=== PATIENT | female | born 1955 | race Hispanic/Latino ===

== ENCOUNTER 2016-11-27 11:09 | Emergency (ER) | payer MEDICARE, MEDICAID ==
[2016-11-27 11:10] VITALS: BMI 28.1
[2016-11-27 11:15] VITALS: BP 141/64; PULSE 69; RESP 20; TEMP 98.3; O2SAT 100
--- NOTE | 2016-11-27 12:15 | ED PDOC ---
HPI: Dental Pain/Injury Time Seen by Provider: 11/27/16 11:59 Chief Complaint (Nursing): Dental Pain Chief Complaint (Provider): Facial pain History Per: Patient Additional Complaint(s): c/o pain and swelling lt side of face and lt upper molar x 3 days. No fever or chills. Past Medical History Reviewed: Nursing Documentation, Vital Signs Vital Signs: Last Vital Signs Temp 98.3 F 11/27/16 11:15 Pulse 69 11/27/16 11:15 Resp 20 11/27/16 11:15 BP 141/64 11/27/16 11:15 Pulse Ox 100 11/27/16 11:15 - Medical History PMH: Anemia, Anxiety, Arthritis (osteoarthritis), Asthma, Back Problems ( chronic pain), COPD, CVA, Depression, Hypercholesterolemia (per old record but pt dnies), Hypothyroidism, Osteoporosis, Chronic Kidney Disease, TIA Denies: HIV, HTN - Surgical History Surgical History: (x2) Denies: Pacemaker - Family History Family History: States: Diabetes - Living Arrangements Living Arrangements: With Family - Social History Current smoker - smoking cessation education provided: No Alcohol: None Drugs: Denies - Immunization History Hx Tetanus Toxoid Vaccination: No Hx Influenza Vaccination: Yes Hx Pneumococcal Vaccination: No - Home Medications Home Medications: Ambulatory Orders Medication Instructions Recorded Albuterol Sulfate [Proair Hfa] 2 puff IH BID PRN 06/05/16 Cholecalciferol (Vitamin D3) 5,000 unit PO DAILY 06/05/16 [Vitamin D3] Fluticasone/Salmeterol 250/50 1 puff IH Q12H 06/05/16 [Advair Diskus 250/50] Hydroxychloroquine Sulfate 200 mg PO BID 06/05/16 [Plaquenil] Lorazepam [Ativan] 0.5 mg PO DAILY PRN 06/05/16 Meloxicam [Mobic] 15 mg PO DAILY 06/05/16 Omeprazole 40 mg PO DAILY 06/05/16 Cholecalciferol [Vitamin D 1000 IU] 5,000 iu PO DAILY tab 06/08/16 Fluticasone/Salmeterol 250/50 1 puff IH Q12H puff 06/08/16 [Advair Diskus 250/50] Clindamycin [Cleocin] 300 mg PO BID #14 cap 11/27/16 Ibuprofen [Motrin] 600 mg PO Q6 #20 tab 11/27/16 oxyCODONE/Acetaminophen [Percocet 1 ea PO Q6 PRN #5 tab 11/27/16 5/325 mg Tab] - Allergies Allergies/Adverse Reactions: Allergies Allergy/AdvReac Type Severity Reaction Status Date / Time No Known Allergies Allergy Verified 11/27/16 11:41 Review of Systems ROS Statement: Except As Marked, All Systems Reviewed And Found Negative ENT: Positive for: Other (facial swelling) Physical Exam - Reviewed Nursing Documentation Reviewed: Yes Vital Signs Reviewed: Yes - Physical Exam Appears: Positive for: Well, Non-toxic, No Acute Distress Head Exam: Positive for: ATRAUMATIC, NORMAL INSPECTION, NORMOCEPHALIC Skin: Positive for: Normal Color, Warm, DRY Eye Exam: Positive for: EOMI, Normal appearance, PERRL ENT: Positive for: Other (Left maxillary sinus tenderness, erythema and edema) Neck: Positive for: Normal, Painless ROM Cardiovascular/Chest: Positive for: Regular Rate, Rhythm Respiratory: Positive for: CNT, Normal Breath Sounds Gastrointestinal/Abdominal: Positive for: Normal Exam, Bowel Sounds, Soft Back: Positive for: Normal Inspection Extremity: Positive for: Normal ROM Neurologic/Psych: Positive for: Alert, Oriented - Laboratory Results Result Diagrams: 11/27/16 12:30 11/27/16 12:30 - ECG O2 Sat by Pulse Oximetry: 100 Medical Decision Making Medical Decision Making: IV access established and treatment initiated with IV Toradol and Clindamycin CBC and COMP resulted WNL, WBC 6.5 IMPRESSION: 1. Findings are concerning for a 2.5 x 0.6 cm rim enhancing fluid collection lateral to the left maxilla and abnormal enhancing soft tissue lateral to the left maxilla and mandible with reactive submandibular lymph node. Also noted is left facial cellulitis. 2. Periapical absc ess in the left 2nd maxillary molar. Pt educated on results and demonstrated full understanding. Pt given [facility] for follow up. Advised to continue with Clindamycin, Motrin RX for Pain. Return to ED if at anytime condition worsens. Disposition - Clinical Impression Clinical Impression: Dental abscess, Facial cellulitis - Patient ED Disposition Is Patient to be Admitted: No - Disposition Disposition: Routine/Home Disposition Time: 16:31 Condition: STABLE - POA Present On Arrival: None
[2016-11-27 12:59] LABS: BASO % 0.4 % (0.0-2.0); EOS # 0.1 K/uL (0.0-0.7); EOS % 1.1 % (0.0-4.0); HEMOGLOBIN 13.1 g/dL (12.0-16.0); LYMPH % 15.8 % (20.0-40.0); MEAN CELL VOLUME 86.8 fl (81.0-99.0); MEAN CORPUSCULAR HEMOGLOBIN 29.4 pg (27.0-31.0); MEAN CORPUSCULAR HGB CONC 33.9 g/dL (33.0-37.0); MEAN PLATELET VOLUME 8.7 fl (7.2-11.7); MONO # 0.5 K/uL (0.0-0.8); MONO % 8.4 % (0.0-10.0); NEUT # 4.8 K/uL (1.8-7.0); NEUT % 74.3 % (50.0-75.0); NRBC % 0.1 % (0.0-0.0); RBC 4.44 Mil/uL (3.80-5.20); WHITE BLOOD COUNT 6.5 K/uL (4.8-10.8)
[2016-11-27 13:12] LABS: ALB/GLOB RATIO 1.2 (1.0-2.1); ALBUMIN 4.1 g/dL (3.5-5.0); ALT/SGPT 29 U/L (9-52); AST/SGOT 25 U/L (14-36); BLOOD UREA NITROGEN 12 mg/dl (7-17); CALCIUM 9.4 mg/dL (8.4-10.2); GFR AFRICAN-AMERICAN > 60; GFR NON-AFRICAN AMERICAN > 60
[2016-11-27] MEDS ORDERED: Iohexol 300 100 ML IJ ONE (14:47)
[2016-11-27] MEDS ORDERED: Sodium Chloride 0.9% 50 ML IV ONE (14:47)
--- NOTE | 2016-11-27 15:32 | CT ---
PROCEDURE: CT MAXILLOFACIAL BONES WITH CONTRAST HISTORY: r/o abscess, left cheek pain and swelling COMPARISON: None. TECHNIQUE: Contiguous axial CT images of the maxillofacial bones were obtained following administration of IV contrast. Coronal and sagittal reformats were generated. Intravenous contrast Dose: 90 mL Omnipaque 300 Radiation dose: Total exam DLP = 756.81 mGy-cm. This CT exam was performed using one or more of the following dose reduction techniques: Automated exposure control, adjustment of the mA and/or kV according to patient size, and/or use of iterative reconstruction technique. FINDINGS: NASAL BONES: Unremarkable. 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 There are no intra-ocular extra ocular abnormalities the PARANASAL SINUSES/ MASTOIDS: Clear. MAXILLA: There is an approximately 2.5 x 0.6 cm abnormal soft-tissue along the left posterior maxilla and left lateral mandible. There is also a small focus of air within the low-attenuation collection. There is a periapical abscess in the left 2nd maxillary molar. There is a prominent left submandibular lymph node. There is also stranding of fat in the left facial subcutaneous fat. MANDIBLE/ TEMPOROMANDIBULAR JOINTS: Unremarkable. SKULL BASE: Unremarkable. TEMPORAL BONES: Middle ears and mastoid grossly unremarkable. OTHER FINDINGS: There are large calcified and noncalcified plaques in the left carotid bulb. IMPRESSION: 1. Findings are concerning for a 2.5 x 0.6 cm rim enhancing fluid collection lateral to the left maxilla and abnormal enhancing soft tissue lateral to the left maxilla and mandible with reactive submandibular lymph node. Also noted is left facial cellulitis. 2. Periapical abscess in the left 2nd maxillary molar.
== END 2016-11-27 17:00 | disposition home or self-care (01) ==
LOC: H.ER 11:09
DX: K12.2 Cellulitis and abscess of mouth (principal)
CPT/HCPCS: 70488; 80053; 85025; 87040; 96374; 99281; J1885; Q9967

== ENCOUNTER 2017-01-10 13:37 | Emergency (ER) | payer MEDICARE, OTHER ==
[2017-01-10 13:38] VITALS: BMI 28.1
[2017-01-10 13:54] VITALS: TEMP 98.6
[2017-01-10 14:27] LABS: BASO % 0.6 % (0.0-2.0); EOS % 0.6 % (0.0-4.0); HEMOGLOBIN 13.6 g/dL (12.0-16.0); LYMPH # 0.9 K/uL (1.0-4.3); LYMPH % 11.6 % (20.0-40.0); MEAN CELL VOLUME 87.5 fl (81.0-99.0); MEAN CORPUSCULAR HEMOGLOBIN 29.5 pg (27.0-31.0); MEAN CORPUSCULAR HGB CONC 33.7 g/dL (33.0-37.0); MEAN PLATELET VOLUME 8.3 fl (7.2-11.7); MONO # 0.4 K/uL (0.0-0.8); MONO % 5.7 % (0.0-10.0); NEUT # 6.2 K/uL (1.8-7.0); NEUT % 81.5 % (50.0-75.0); RBC 4.61 Mil/uL (3.80-5.20); RED CELL DISTRIBUTION WIDTH 12.9 % (11.5-14.5); WHITE BLOOD COUNT 7.5 K/uL (4.8-10.8)
[2017-01-10] MEDS ORDERED: Oxycodone/Acetaminophen 5/325 mg Tab PO STA (14:30)
[2017-01-10 14:37] LABS: BLOOD UREA NITROGEN 19 mg/dl (7-17); CALCIUM 9.4 mg/dL (8.4-10.2); GFR AFRICAN-AMERICAN > 60; GFR NON-AFRICAN AMERICAN > 60
[2017-01-10] MEDS ORDERED: Oxycodone/Acetaminophen 5/325 mg Tab ONE (14:39)
--- NOTE | 2017-01-10 14:39 | ED PDOC ---
HPI: General Adult Time Seen by Provider: 01/10/17 13:56 Chief Complaint (Nursing): Weakness/Neurological Deficit Chief Complaint (Provider): Numbness of the mouth History Per: Patient History/Exam Limitations: no limitations Onset/Duration Of Symptoms: Hrs Current Symptoms Are (Timing): Still Present Additional Complaint(s): 61 y/o female presents to the emergency department with a complaint of numbness of her mouth and lower face after dental procedure a couple of hours ago today, 01/10/2017. Patient underwent multiple tooth extractions with Lidocaine Inj. Describes it as a heavy feeling with pain to her teeth. Reports she is worried because she has a history of strokes and hypertension, not taking medications for, and not feeling well after the procedure. Denies bleeding, chest pain, dizziness, or further neurological complaints or deficits. Of note, patient had dental procedure earlier today and waiting as outpatient for EKG as a medical clearance for next scheduled appointment. While waiting patient started to feel heaviness of the face and pain in the teeth because teeth were removed. Past Medical History Reviewed: Historical Data, Nursing Documentation, Vital Signs Vital Signs: Last Vital Signs Temp 98.6 F 01/10/17 13:46 Pulse 86 01/10/17 13:46 Resp 16 01/10/17 13:46 BP 146/75 01/10/17 13:46 Pulse Ox 98 01/10/17 14:49 - Medical History PMH: Anemia, Anxiety, Arthritis (osteoarthritis), Asthma, Back Problems ( chronic pain), COPD, CVA, Depression, Hypercholesterolemia (per old record but pt dnies), Hypothyroidism, Osteoporosis, Chronic Kidney Disease, TIA Denies: HIV, HTN - Surgical History Surgical History: (x2) Denies: Pacemaker - Family History Family History: States: Diabetes - Social History Current smoker - smoking cessation education provided: No Alcohol: None Drugs: Denies - Immunization History Hx Tetanus Toxoid Vaccination: No Hx Influenza Vaccination: Yes Hx Pneumococcal Vaccination: No - Home Medications Home Medications: Ambulatory Orders Medication Instructions Recorded Albuterol Sulfate [Proair Hfa] 2 puff IH BID PRN 06/05/16 Cholecalciferol (Vitamin D3) 5,000 unit PO DAILY 06/05/16 [Vitamin D3] Fluticasone/Salmeterol 250/50 1 puff IH Q12H 06/05/16 [Advair Diskus 250/50] Hydroxychloroquine Sulfate 200 mg PO BID 06/05/16 [Plaquenil] Lorazepam [Ativan] 0.5 mg PO DAILY PRN 06/05/16 Meloxicam [Mobic] 15 mg PO DAILY 06/05/16 Omeprazole 40 mg PO DAILY 06/05/16 Cholecalciferol [Vitamin D 1000 IU] 5,000 iu PO DAILY tab 06/08/16 Fluticasone/Salmeterol 250/50 1 puff IH Q12H puff 06/08/16 [Advair Diskus 250/50] Clindamycin [Cleocin] 300 mg PO BID #14 cap 11/27/16 Ibuprofen [Motrin] 600 mg PO Q6 #20 tab 11/27/16 oxyCODONE/Acetaminophen [Percocet 1 ea PO Q6 PRN #5 tab 11/27/16 5/325 mg Tab] - Allergies Allergies/Adverse Reactions: Allergies Allergy/AdvReac Type Severity Reaction Status Date / Time No Known Allergies Allergy Verified 11/27/16 11:41 Review of Systems ROS Statement: Except As Marked, All Systems Reviewed And Found Negative ENT: Positive for: Mouth Pain (Teeth pain). Negative for: Other (No bleeding noted to the teeth or mouth region) Cardiovascular: Negative for: Chest Pain Neurological: Positive for: Numbness (Of the mouth described as heavy. ). Negative for: Dizziness Physical Exam - Reviewed Nursing Documentation Reviewed: Yes Vital Signs Reviewed: Yes - Physical Exam Appears: Positive for: Well, Non-toxic, No Acute Distress Head Exam: Positive for: ATRAUMATIC, NORMAL INSPECTION, NORMOCEPHALIC Skin: Positive for: Normal Color, Warm, Dry Eye Exam: Positive for: Normal appearance, EOMI ENT: Positive for: Normal ENT Inspection, Other (No teeth noted in the mouth. All remaning teeth were extracted. ). Negative for: Pharyngeal Erythema Neck: Positive for: Normal, Supple Cardiovascular/Chest: Positive for: Regular Rate, Rhythm. Negative for: Murmur Respiratory: Positive for: Normal Breath Sounds. Negative for: Accessory Muscle Use, Respiratory Distress Gastrointestinal/Abdominal: Positive for: Normal Exam, Soft. Negative for: Tenderness Extremity: Positive for: Normal ROM. Negative for: Pedal Edema Neurologic/Psych: Positive for: Alert, Oriented - Laboratory Results Result Diagrams: 01/10/17 14:23 01/10/17 14:23 - ECG O2 Sat by Pulse Oximetry: 98 (RA) Pulse Ox Interpretation: Normal Medical Decision Making Medical Decision Making: Time: 14:01 Initial impression: Paresthesias of the mouth and lower face associated with anaesthetic used during dental procedure Initial plan: --EKG --BMP --Troponin I --Percocet 5/325 mg --Reevaluation Scribe Attestation: Documented by Katty Aguilar, acting as a scribe for Priscilla Middleton MD. Provider Scribe Attestation: All medical record entries made by the Scribe were at my direction and personally dictated by me. I have reviewed the chart and agree that the record accurately reflects my personal performance of the history, physical exam, medical decision making, and the department course for this patient. I have also personally directed, reviewed, and agree with the discharge instructions and disposition. Disposition - Clinical Impression Clinical Impression: Paresthesias - Patient ED Disposition Is Patient to be Admitted: No Doctor Will See Patient In The: Office Counseled Patient/Family Regarding: Studies Performed, Diagnosis - Disposition Referrals: Yemi Echevarria MD [Staff Provider] - Disposition: Routine/Home Disposition Time: 14:54 Condition: GOOD Additional Instructions: Follow up with your PCP in 2-3 days. Instructions: Paresthesia (ED)
[2017-01-10 15:11] VITALS: BP 132/78; PULSE 75; RESP 14; O2SAT 100
--- NOTE | 2017-01-11 12:07 | CARD ---
APPROVED REPORT EKG Measurement Heart [id number] <Conclusion> Normal sinus rhythm Inferior infarct, age undetermined Abnormal ECG
== END 2017-01-10 15:10 | disposition home or self-care (01) ==
LOC: H.ER 13:37
DX: R20.2 Paresthesia of skin (principal); E03.9 Hypothyroidism, unspecified; F41.9 Anxiety disorder, unspecified; I12.9 Hypertensive chronic kidney disease with stage 1 through stage 4 chronic kidney disease, or unspecified chronic kidney disease; Z86.73 Personal history of transient ischemic attack (TIA), and cerebral infarction without residual deficits

== ENCOUNTER 2017-01-13 21:33 | Emergency (ER) | payer MEDICARE, OTHER ==
[2017-01-13 21:33] VITALS: BMI 28.1
[2017-01-13 21:41] VITALS: BP 126/54; PULSE 75; RESP 18; TEMP 98.5; O2SAT 100
--- NOTE | 2017-01-13 22:02 | ED PDOC ---
Lower Extremity Pain/Injury Time Seen by Provider: 01/13/17 21:46 Chief Complaint (Nursing): Lower Extremity Problem/Injury Chief Complaint (Provider): foot pain History Per: Patient Additional Complaint(s): 61-year-old female presents with atraumatic pain to her right foot that started earlier today. Patient was lying down when she felt sharp pain to the bottom of right foot. She took 2 Tylenol which did not help so she came to ED. Patient has severe discomfort when trying to walk or bear weight. No associated fever or chills. She states pain does not radiate and is improved with rest. No associated numbness or tingling to the affected area. Past Medical History Reviewed: Historical Data, Nursing Documentation, Vital Signs Vital Signs: Last Vital Signs Temp 98.5 F 01/13/17 21:39 Pulse 75 01/13/17 21:39 Resp 18 01/13/17 21:39 BP 126/54 L 01/13/17 21:39 Pulse Ox 100 01/13/17 21:39 - Medical History PMH: Anemia, Anxiety, Arthritis (osteoarthritis), Asthma, Back Problems ( chronic pain), COPD, Depression, Hypothyroidism, Osteoporosis, TIA - Surgical History Surgical History: (x2) - Family History Family History: States: Diabetes - Living Arrangements Living Arrangements: With Family - Social History Current smoker - smoking cessation education provided: Yes ("sometimes") Alcohol: None Drugs: Denies - Home Medications Home Medications: Ambulatory Orders Medication Instructions Recorded Albuterol Sulfate [Proair Hfa] 2 puff IH BID PRN 06/05/16 Cholecalciferol (Vitamin D3) 5,000 unit PO DAILY 06/05/16 [Vitamin D3] Fluticasone/Salmeterol 250/50 1 puff IH Q12H 06/05/16 [Advair Diskus 250/50] Hydroxychloroquine Sulfate 200 mg PO BID 06/05/16 [Plaquenil] Lorazepam [Ativan] 0.5 mg PO DAILY PRN 06/05/16 Meloxicam [Mobic] 15 mg PO DAILY 06/05/16 Omeprazole 40 mg PO DAILY 06/05/16 Cholecalciferol [Vitamin D 1000 IU] 5,000 iu PO DAILY tab 06/08/16 Fluticasone/Salmeterol 250/50 1 puff IH Q12H puff 06/08/16 [Advair Diskus 250/50] Clindamycin [Cleocin] 300 mg PO BID #14 cap 11/27/16 Ibuprofen [Motrin] 600 mg PO Q6 #20 tab 11/27/16 oxyCODONE/Acetaminophen [Percocet 1 ea PO Q6 PRN #5 tab 11/27/16 5/325 mg Tab] Ibuprofen [Motrin Tab] 800 mg PO Q8 PRN #20 tab 01/13/17 - Allergies Allergies/Adverse Reactions: Allergies Allergy/AdvReac Type Severity Reaction Status Date / Time No Known Allergies Allergy Verified 11/27/16 11:41 Wells Criteria for PE - Wells Criteria for Pulmonary Embolism Clinical Signs and Symptoms of DVT: No P.E is #1 Diagnosis, or Equally Likely: No Heart Rate >100: No Immobilization at least 3 days;Surgery previous 4 weeks: No Previous, objectively diagnosed PE or DVT: No Hemoptysis: No Malignancy w/treatment within 6 months, or palliative: No Total Score: 0 Review of Systems ROS Statement: Except As Marked, All Systems Reviewed And Found Negative Constitutional: Negative for: Fever, Chills Cardiovascular: Negative for: Chest Pain Respiratory: Negative for: Shortness of Breath Musculoskeletal: Positive for: Foot Pain (right foot pain, no trauma) Physical Exam - Reviewed Nursing Documentation Reviewed: Yes Vital Signs Reviewed: Yes - Physical Exam Appears: Positive for: Well, Non-toxic, No Acute Distress Skin: Negative for: Rash Eye Exam: Positive for: Normal appearance, EOMI, PERRL Cardiovascular/Chest: Positive for: Regular Rate, Rhythm Respiratory: Positive for: Normal Breath Sounds Extremity: Positive for: Other (Mild tenderness diffusely to right foot with no swelling or ecchymosis, palpable DP pulse, no swelling or ecchymosis, normal distal sensation right lower extremity, nontender right ankle) Neurologic/Psych: Positive for: Alert, Oriented - ECG O2 Sat by Pulse Oximetry: 100 Pulse Ox Interpretation: Normal - Other Rad Right foot x-ray X-Ray: Interpreted by Me, Viewed By Me X-Ray Interpretation: no fx, no dis, degenerative changes, osteopenia Medical Decision Making Medical Decision Makin-year-old female with atraumatic pain to right foot. Plan: PO motrin X-ray right foot Patient reports improvement to pain after Motrin dose given. Crutches were declined. Patient does have cane at home. Ronnie wrap and ortho shoe applied to right foot. Patient was advised to ice and elevate affected area and prescription for Motrin was provided along with podiatry referral for follow up. Procedures - Splinting Location: right foot Pre-Made Type: ronnie wrap, ortho shoe Pre-Proc Neuro Vasc Exam: normal Post-Proc Neuro Vasc Exam: normal Disposition - Clinical Impression Clinical Impression: Foot pain, Arthralgia of foot - Patient ED Disposition Is Patient to be Admitted: No Counseled Patient/Family Regarding: Studies Performed, Diagnosis, Need For Followup, Rx Given - Disposition Referrals: Taz Ding DPM [Staff Provider] - Podiatry Clinic [Outside] Disposition: Routine/Home Disposition Time: 22:43 Condition: STABLE Additional Instructions: Ice, rest and elevate affected area. Take prescription meds for pain relief as needed as directed. Follow-up with air traffic supervisor or podiatry clinic for any persistent symptoms. Prescriptions: Ibuprofen [Motrin Tab] 800 mg PO Q8 PRN #20 tab PRN Reason: Pain, Moderate (4-7) Instructions: Arthralgia (ED), Foot Sprain (ED) Forms: [employer] ([employer])
--- NOTE | 2017-01-14 10:25 | RAD ---
PROCEDURE: Right Foot Radiographs. HISTORY: pain COMPARISON: None. FINDINGS: BONES: Normal. No fracture. JOINTS: Normal. SOFT TISSUES: Normal. OTHER FINDINGS: None. IMPRESSION: Normal right foot radiographs.
== END 2017-01-13 23:12 | disposition home or self-care (01) ==
LOC: H.ER 21:33
DX: M79.671 Pain in right foot (principal)

== ENCOUNTER 2017-07-12 11:08 | Emergency (ER) | payer MEDICARE, OTHER ==
[2017-07-12 11:25] VITALS: BP 124/70; PULSE 65; RESP 16; TEMP 97.4; O2SAT 100
--- NOTE | 2017-07-12 11:40 | ED PDOC ---
HPI: Skin/Bite Injury Time Seen by Provider: 07/12/17 11:22 Chief Complaint (Nursing): Abnormal Skin Integrity History Per: Patient Onset/Duration Of Symptoms: Days (1) Current Symptoms Are (Timing): Still Present Location Of Injury: Right: Arm, Left: Back, Anterior: Abdomen Quality Of Symptoms: Itching Severity: Moderate Additional Complaint(s): Itchy rash involving right bicep, infraumbilical area and left mid back since yesterday. Unknown allergen. Denies SOB, wheezing or tightness in throat Past Medical History Vital Signs: Last Vital Signs Temp 97.4 F L 07/12/17 11:22 Pulse 65 07/12/17 11:22 Resp 16 07/12/17 11:22 BP 124/70 07/12/17 11:22 Pulse Ox 100 07/12/17 11:22 - Medical History PMH: Anemia, Anxiety, Arthritis (osteoarthritis), Asthma, Back Problems ( chronic pain), COPD, CVA, Depression, Hypercholesterolemia (per old record but pt dnies), Hypothyroidism, Osteoporosis, Chronic Kidney Disease, TIA Denies: HIV, HTN Other PMH: Lupus - Surgical History Surgical History: (x2) Denies: Pacemaker - Family History Family History: States: Diabetes - Immunization History Hx Tetanus Toxoid Vaccination: No Hx Influenza Vaccination: Yes Hx Pneumococcal Vaccination: No - Home Medications Home Medications: Ambulatory Orders Medication Instructions Recorded Albuterol Sulfate [Proair Hfa] 2 puff IH BID PRN 06/05/16 Cholecalciferol (Vitamin D3) 5,000 unit PO DAILY 06/05/16 [Vitamin D3] Fluticasone/Salmeterol 250/50 1 puff IH Q12H 06/05/16 [Advair Diskus 250/50] Hydroxychloroquine Sulfate 200 mg PO BID 06/05/16 [Plaquenil] Lorazepam [Ativan] 0.5 mg PO DAILY PRN 06/05/16 Meloxicam [Mobic] 15 mg PO DAILY 06/05/16 Omeprazole 40 mg PO DAILY 06/05/16 Cholecalciferol [Vitamin D 1000 IU] 5,000 iu PO DAILY tab 06/08/16 Fluticasone/Salmeterol 250/50 1 puff IH Q12H puff 06/08/16 [Advair Diskus 250/50] Clindamycin [Cleocin] 300 mg PO BID #14 cap 11/27/16 Ibuprofen [Motrin] 600 mg PO Q6 #20 tab 11/27/16 oxyCODONE/Acetaminophen [Percocet 1 ea PO Q6 PRN #5 tab 11/27/16 5/325 mg Tab] Ibuprofen [Motrin Tab] 800 mg PO Q8 PRN #20 tab 01/13/17 Cetirizine HCl [Zyrtec] 10 mg PO DAILY #10 capsule 07/12/17 Prednisone 50 mg PO DAILY #5 tab 07/12/17 - Allergies Allergies/Adverse Reactions: Allergies Allergy/AdvReac Type Severity Reaction Status Date / Time No Known Allergies Allergy Verified 11/27/16 11:41 Review of Systems Constitutional: Negative for: Fever ENT: Negative for: Mouth Swelling, Throat Swelling Respiratory: Negative for: Shortness of Breath Skin: Positive for: Rash Physical Exam - Physical Exam Appears: Positive for: Non-toxic, No Acute Distress Skin: Positive for: Rash (Erythemetous rash flat confluent right inner bicep, below unbilicus and left mid back) ENT: Negative for: Tonsillar Swelling Cardiovascular/Chest: Positive for: Regular Rate, Rhythm Respiratory: Positive for: CNT, Normal Breath Sounds - ECG O2 Sat by Pulse Oximetry: 100 Disposition - Clinical Impression Clinical Impression: Allergic reaction - Patient ED Disposition Is Patient to be Admitted: No Counseled Patient/Family Regarding: Diagnosis, Need For Followup, Rx Given - Disposition Referrals: [facility] [Outside] Chad Long MD [Family Provider] - Disposition: Routine/Home Disposition Time: 11:41 Condition: FAIR Prescriptions: Cetirizine HCl [Zyrtec] 10 mg PO DAILY #10 capsule Prednisone 50 mg PO DAILY #5 tab Instructions: Skin Rash, Hives (DC)
== END 2017-07-12 11:50 | disposition home or self-care (01) ==
LOC: H.ER 11:08
DX: M81.0 Age-related osteoporosis without current pathological fracture (principal); J45.909 Unspecified asthma, uncomplicated; Z86.79 Personal history of other diseases of the circulatory system; Z86.59 Personal history of other mental and behavioral disorders

== ENCOUNTER 2017-12-13 15:16 | Emergency (ER) | payer MEDICARE, OTHER ==
[2017-12-13 15:26] VITALS: O2SAT 98
--- NOTE | 2017-12-13 16:16 | ED PDOC ---
Lower Extremity Pain/Injury Time Seen by Provider: 12/13/17 15:42 Chief Complaint (Nursing): Lower Extremity Problem/Injury Chief Complaint (Provider): Lower Extremity Problem/Injury History Per: Patient History/Exam Limitations: no limitations Onset/Duration Of Symptoms: Days (x1) Current Symptoms Are (Timing): Still Present Additional Complaint(s): Jessica Tristan is a 62 year old female with a past medical history of osteoporosis , COPD, GERD, arthritis, asthma, chronic back pain, and CVA who is presenting to the ED with complaints of constant knee pain, onset yesterday. Patient states that the pain is worsened when she walks or bends the knee but denies any trauma or injury. She reports taking Tylenol for the pain and denies any fever or other medical complaints. PMD: Dr. Long Past Medical History Reviewed: Historical Data, Nursing Documentation, Vital Signs Vital Signs: Last Vital Signs Temp 98.8 F 12/13/17 15:24 Pulse 62 12/13/17 15:24 Resp 20 12/13/17 15:24 BP 120/61 12/13/17 15:24 Pulse Ox 98 12/13/17 15:24 - Medical History PMH: Anemia, Anxiety, Arthritis (osteoarthritis), Asthma, Back Problems ( chronic pain), COPD, CVA, Depression, GERD, Hypercholesterolemia (per old record but pt dnies), Hypothyroidism, Osteoporosis, Chronic Kidney Disease, TIA , Chronic Pain (back) Denies: HIV, HTN - Surgical History Surgical History: (x2) Denies: Pacemaker - Family History Family History: States: Diabetes - Social History Current smoker - smoking cessation education provided: No Alcohol: None Drugs: Denies - Immunization History Hx Tetanus Toxoid Vaccination: No Hx Influenza Vaccination: Yes Hx Pneumococcal Vaccination: No - Home Medications Home Medications: Ambulatory Orders Medication Instructions Recorded Albuterol Sulfate [Proair Hfa] 2 puff IH BID PRN 06/05/16 Cholecalciferol (Vitamin D3) 5,000 unit PO DAILY 06/05/16 [Vitamin D3] Fluticasone/Salmeterol 250/50 1 puff IH Q12H 06/05/16 [Advair Diskus 250/50] Hydroxychloroquine Sulfate 200 mg PO BID 06/05/16 [Plaquenil] Lorazepam [Ativan] 0.5 mg PO DAILY PRN 06/05/16 Meloxicam [Mobic] 15 mg PO DAILY 06/05/16 Omeprazole 40 mg PO DAILY 06/05/16 Cholecalciferol [Vitamin D 1000 IU] 5,000 iu PO DAILY tab 06/08/16 Fluticasone/Salmeterol 250/50 1 puff IH Q12H puff 06/08/16 [Advair Diskus 250/50] Clindamycin [Cleocin] 300 mg PO BID #14 cap 11/27/16 Ibuprofen [Motrin] 600 mg PO Q6 #20 tab 11/27/16 oxyCODONE/Acetaminophen [Percocet 1 ea PO Q6 PRN #5 tab 11/27/16 5/325 mg Tab] Ibuprofen [Motrin Tab] 800 mg PO Q8 PRN #20 tab 01/13/17 Cetirizine HCl [Zyrtec] 10 mg PO DAILY #10 capsule 07/12/17 Prednisone 50 mg PO DAILY #5 tab 07/12/17 Naproxen 500 mg PO BID #20 tab 12/13/17 - Allergies Allergies/Adverse Reactions: Allergies Allergy/AdvReac Type Severity Reaction Status Date / Time No Known Allergies Allergy Verified 12/13/17 15:24 Review of Systems ROS Statement: Except As Marked, All Systems Reviewed And Found Negative Constitutional: Negative for: Fever Musculoskeletal: Positive for: Leg Pain (knee) Physical Exam - Reviewed Nursing Documentation Reviewed: Yes Vital Signs Reviewed: Yes - Physical Exam Appears: Positive for: Well, Non-toxic, No Acute Distress Head Exam: Positive for: ATRAUMATIC, NORMAL INSPECTION, NORMOCEPHALIC Skin: Positive for: Normal Color Neck: Positive for: Normal Back: Positive for: Normal Inspection. Negative for: L CVA Tenderness, R CVA Tenderness, Vertebral Tenderness Extremity: Positive for: Normal ROM. Negative for: Tenderness, Pedal Edema, Calf Tenderness, Deformity, Swelling, Other (erythema) Neurologic/Psych: Positive for: Alert, Oriented. Negative for: Motor/Sensory Deficits - ECG O2 Sat by Pulse Oximetry: 98 (RA) Pulse Ox Interpretation: Normal Medical Decision Making Medical Decision Making: Time: 16:01 Impression: Atraumatic Knee Pain Differentials: arthritis, osteoarthritis, gout Plan: --X-Ray left knee --Toradol 30 mg IM --Ultrasound Lower Extremity X-Ray Knee: FINDINGS: BONES: Normal. No fracture. JOINTS: Normal. No osteoarthritis. JOINT EFFUSION: None. OTHER FINDINGS: None. IMPRESSION: Normal radiographs of the left knee US Lower Extremity: FINDINGS: 2-D, color and duplex Doppler analysis of the lower extremity venous circulation using routine protocol from the femoral veins through the popliteal veins. Venous compressibility: Normal. Flow and augmentation patterns: Normal. Visualized veins upper third of calf: Normal. Matos cyst: None. IMPRESSION: No sonographic or Doppler evidence for DVT in left lower extremity. Scribe Attestation: Documented by Ernestina Soni, acting as a scribe for Priscilla Middleton MD. Provider Scribe Attestation: All medical record entries made by the Scribe were at my direction and personally dictated by me. I have reviewed the chart and agree that the record accurately reflects my personal performance of the history, physical exam, medical decision making, and the department course for this patient. I have also personally directed, reviewed, and agree with the discharge instructions and disposition. Disposition - Clinical Impression Clinical Impression: Leg pain, left - Patient ED Disposition Is Patient to be Admitted: No Doctor Will See Patient In The: Office Counseled Patient/Family Regarding: Studies Performed, Diagnosis, Need For Followup - Disposition Referrals: Chad Long MD [Staff Provider] - Disposition: Routine/Home Disposition Time: 18:37 Condition: GOOD Additional Instructions: Take your medications as instructed. Follow up with your PCP in 2-3 days. Prescriptions: Naproxen 500 mg PO BID #20 tab Instructions: Knee Pain (DC)
--- NOTE | 2017-12-13 16:38 | RAD ---
Date of service: 12/13/2017 PROCEDURE: Left Knee Radiographs. HISTORY: Pain. COMPARISON: None. FINDINGS: BONES: Normal. No fracture. JOINTS: Normal. No osteoarthritis. JOINT EFFUSION: None. OTHER FINDINGS: None. IMPRESSION: Normal radiographs of the left knee.
--- NOTE | 2017-12-13 18:10 | US ---
Date of service: 12/13/2017 HISTORY: left leg pain . PRIORS: None. FINDINGS: 2-D, color and duplex Doppler analysis of the lower extremity venous circulation using routine protocol from the femoral veins through the popliteal veins. Venous compressibility: Normal. Flow and augmentation patterns: Normal. Visualized veins upper third of calf: Normal. Matos cyst: None. IMPRESSION: No sonographic or Doppler evidence for DVT in left lower extremity.
[2017-12-13 19:00] VITALS: BP 128/78; PULSE 78; RESP 19; TEMP 97
== END 2017-12-13 19:01 | disposition home or self-care (01) ==
LOC: H.ER 15:16
DX: M79.605 Pain in left leg (principal); E03.9 Hypothyroidism, unspecified; E78.00 Pure hypercholesterolemia, unspecified; Z86.59 Personal history of other mental and behavioral disorders; G89.29 Other chronic pain; J44.9 Chronic obstructive pulmonary disease, unspecified; M19.90 Unspecified osteoarthritis, unspecified site; M81.0 Age-related osteoporosis without current pathological fracture; N18.9 Chronic kidney disease, unspecified; Z86.73 Personal history of transient ischemic attack (TIA), and cerebral infarction without residual deficits
CPT/HCPCS: 73562; 93971; 96372; 99283; J1885

== ENCOUNTER 2018-01-07 18:29 | Emergency (ER) | payer MEDICARE, OTHER ==
[2018-01-07 18:37] VITALS: O2SAT 98
--- NOTE | 2018-01-07 19:25 | ED PDOC ---
HPI: Abdomen Time Seen by Provider: 01/07/18 19:10 Chief Complaint (Nursing): Abdominal Pain History Per: Patient History/Exam Limitations: no limitations Onset/Duration Of Symptoms: Hrs Outside of [place] travel?: No Current Symptoms Are (Timing): Still Present Location Of Pain/Discomfort: RUQ Associated Symptoms: Loss Of Appetite. denies: Fever, Chills, Nausea, Vomiting Additional Complaint(s): HX of lupus (on plaquenil BID), asthma presenting with abdominal pain since yesterday, worsened today, not related to food consumption although patient states she has lack of appetite today. No fevers, nausea, vomiting, diarrhea, constipation, urinary symptoms, fevers, or other symptoms. Sent in by Dr. Long for further eval. Past Medical History Reviewed: Historical Data, Nursing Documentation, Vital Signs Vital Signs: Last Vital Signs Temp 97.9 F 01/07/18 23:24 Pulse 82 01/07/18 23:24 Resp 18 01/07/18 23:24 BP 122/67 01/07/18 23:24 Pulse Ox 98 01/07/18 23:24 - Medical History PMH: Anemia, Anxiety, Arthritis (osteoarthritis), Asthma, Back Problems ( chronic pain), COPD, CVA, Depression, GERD, Hypercholesterolemia (per old record but pt dnies), Hypothyroidism, Osteoporosis, Chronic Kidney Disease, TIA , Chronic Pain (back) Denies: HIV, HTN - Surgical History Surgical History: (x2) Denies: Pacemaker - Family History Family History: States: Diabetes - Immunization History Hx Tetanus Toxoid Vaccination: No Hx Influenza Vaccination: Yes Hx Pneumococcal Vaccination: No - Home Medications Home Medications: Ambulatory Orders Medication Instructions Recorded Albuterol Sulfate [Proair Hfa] 2 puff IH BID PRN 06/05/16 Cholecalciferol (Vitamin D3) 5,000 unit PO DAILY 06/05/16 [Vitamin D3] Fluticasone/Salmeterol 250/50 1 puff IH Q12H 06/05/16 [Advair Diskus 250/50] Hydroxychloroquine Sulfate 200 mg PO BID 06/05/16 [Plaquenil] Lorazepam [Ativan] 0.5 mg PO DAILY PRN 06/05/16 Meloxicam [Mobic] 15 mg PO DAILY 06/05/16 Omeprazole 40 mg PO DAILY 06/05/16 Cholecalciferol [Vitamin D 1000 IU] 5,000 iu PO DAILY tab 06/08/16 Fluticasone/Salmeterol 250/50 1 puff IH Q12H puff 06/08/16 [Advair Diskus 250/50] Clindamycin [Cleocin] 300 mg PO BID #14 cap 11/27/16 Ibuprofen [Motrin] 600 mg PO Q6 #20 tab 11/27/16 oxyCODONE/Acetaminophen [Percocet 1 ea PO Q6 PRN #5 tab 11/27/16 5/325 mg Tab] Ibuprofen [Motrin Tab] 800 mg PO Q8 PRN #20 tab 01/13/17 Cetirizine HCl [Zyrtec] 10 mg PO DAILY #10 capsule 07/12/17 Prednisone 50 mg PO DAILY #5 tab 07/12/17 Naproxen 500 mg PO BID #20 tab 12/13/17 Nitrofurantoin Macrocrystals 100 mg PO BID 5 Days cap 01/07/18 [Macrobid] - Allergies Allergies/Adverse Reactions: Allergies Allergy/AdvReac Type Severity Reaction Status Date / Time No Known Allergies Allergy Verified 01/07/18 18:35 Review of Systems ROS Statement: Except As Marked, All Systems Reviewed And Found Negative Constitutional: Negative for: Fever Gastrointestinal: Positive for: Abdominal Pain. Negative for: Nausea, Vomiting , Diarrhea Physical Exam - Reviewed Nursing Documentation Reviewed: Yes Vital Signs Reviewed: Yes - Physical Exam Appears: Positive for: Well, Non-toxic, No Acute Distress Head Exam: Positive for: ATRAUMATIC, NORMAL INSPECTION, NORMOCEPHALIC Skin: Positive for: Normal Color, Warm, DRY Eye Exam: Positive for: EOMI, Normal appearance, PERRL ENT: Positive for: Normal ENT Inspection Neck: Positive for: Normal, Painless ROM Cardiovascular/Chest: Positive for: Regular Rate, Rhythm Respiratory: Positive for: CNT, Normal Breath Sounds Gastrointestinal/Abdominal: Positive for: Normal Exam, Soft, Tenderness (RUQ tenderness, equivocal Gaitan's). Negative for: Mass, Distended, Guarding, Rebound Back: Positive for: Normal Inspection Extremity: Positive for: Normal ROM Neurologic/Psych: Positive for: Alert, Oriented. Negative for: Motor/Sensory Deficits - Laboratory Results Result Diagrams: 01/07/18 20:45 01/07/18 20:45 - ECG O2 Sat by Pulse Oximetry: 98 Pulse Ox Interpretation: Normal Medical Decision Making Medical Decision MakinPM Hx of lupus and asthma presenting with abdominal pain -very well appearing, comfortable, vitals normal -possibly gall stones v. pancreatitis v. gas v. colitis -will get labs, U/S, possibly CT, re-eval Abdominal Ultrasound: FINDINGS: Liver: Normal. No masses. Gallbladder: Normal. No gallstones. There is no gallbladder wall thickening. Negative sonographic Gaitan sign. Common bile duct: Normal. No stones. No dilation. Pancreas: Visualized pancreas is unremarkable. Right kidney: Normal. No mass. No hydronephrosis. IMPRESSION: No acute sonographic pathology. CT Abd/Pelvis: FINDINGS: Lower thorax: There is minimal bibasilar atelectatic change or scarring. ABDOMEN: Liver: Normal. No mass. Gallbladder and bile ducts: Normal. No calcified stones. No ductal dilation. Pancreas: Normal. No ductal dilation. Spleen: Normal. No splenomegaly. Adrenals: Normal. No mass. Kidneys and ureters: Normal. No hydronephrosis. Stomach and bowel: There is collapsed appearance of most of the colon and rectum in significant portions of the small bowel which limits evaluation for inflammatory change. Appendix: The appendix is unremarkable and seen best on axial image 112 of series 3. PELVIS: Bladder: Unremarkable as visualized. Reproductive: Unremarkable as visualized. ABDOMEN and PELVIS: Intraperitoneal space: Normal. No free air. No significant fluid collection. Bones/joints: Stable diffuse osteopenia and degenerative changes of the spine. Soft tissues: Unremarkable. Vasculature: There are stable atherosclerotic aortic and iliac artery calcifications. Lymph nodes: Normal. No enlarged lymph nodes. IMPRESSION: No acute CT pathology. 2300 Results negative for acute pathology. Patient with small UTI. Patient feeling much better after toradol. Vitals stable, patient well appearing, suitable for outpatient followup. Upon provider evaluation patient is medically stable, and requires no further treatment in the ED at this time. Patient will be discharged home. Counseling was provided and all questions were answered regarding diagnosis and need for follow up with PMD. There is agreement to discharge plan. Return if symptoms persist or worsen. Disposition - Clinical Impression Clinical Impression: UTI (urinary tract infection), Abdominal discomfort - Patient ED Disposition Is Patient to be Admitted: No - Disposition Referrals: Chad Long MD [Family Provider] - Disposition Time: 23:00 Condition: STABLE Prescriptions: Nitrofurantoin Macrocrystals [Macrobid] 100 mg PO BID 5 Days cap Instructions: Urinary Tract Infections in Adults, Stomach Ache and Stomach Upset Forms: [facility] ([place] Islander) Print Language: FRENCH
[2018-01-07 21:11] LABS: HEMOGLOBIN 13.2 g/dL (12.0-16.0); MEAN CELL VOLUME 90.1 fl (81.0-99.0); MEAN CORPUSCULAR HEMOGLOBIN 30.6 pg (27.0-31.0); RBC 4.33 Mil/uL (3.80-5.20); RED CELL DISTRIBUTION WIDTH 12.8 % (11.5-14.5); WHITE BLOOD COUNT 5.3 K/uL (4.8-10.8)
[2018-01-07 21:24] LABS: SQUAMOUS EPITHIAL 1 /hpf (0-5); URINE BILIRUBIN NEGATIVE (NEGATIVE); URINE BLOOD SMALL (NEGATIVE); URINE CLARITY SLIGHTY-CLOUDY (Clear); URINE COLOR YELLOW (YELLOW); URINE GLUCOSE (UA) NEG (Normal); URINE LEUKOCYTE ESTERASE SMALL Leu/uL (Negative); URINE PROTEIN NEGATIVE (NEGATIVE); URINE UROBILINOGEN 0.2-1.0 mg/dL (0.2-1.0)
[2018-01-07 21:32] LABS: ALB/GLOB RATIO 1.3 (1.0-2.1); ALT/SGPT 18 U/L (9-52); AST/SGOT 22 U/L (14-36); BILIRUBIN,DIRECT 0.5 mg/ml (0.0-0.4); BLOOD UREA NITROGEN 15 mg/dl (7-17); GFR AFRICAN-AMERICAN > 60; GFR NON-AFRICAN AMERICAN > 60; LIPASE 48 U/L (23-300)
[2018-01-07] MEDS ORDERED: Iohexol 300 100 ML IJ ONE (21:56)
[2018-01-07] MEDS ORDERED: Sodium Chloride 0.9% 50 ML IV ONE (21:56)
[2018-01-07 23:25] VITALS: BP 122/67; PULSE 82; RESP 18; TEMP 97.9
--- NOTE | 2018-01-08 09:08 | US ---
Date of service: 01/07/2018 HISTORY: RUQ pain COMPARISON: None. TECHNIQUE: Grayscale imaging was performed. FINDINGS: LIVER: Measures 14.0 cm in length. There is diffuse increased echogenicity of the liver parenchyma. No mass. No intrahepatic bile duct dilatation. GALLBLADDER: There are no gallstones, wall thickening or pericholecystic fluid. The sonographic Gaitan's sign is negative. COMMON BILE DUCT: Measures 3.2 mm. No stones. No dilatation. PANCREAS: Unremarkable as visualized. No mass. No ductal dilatation. RIGHT KIDNEY: Measures 10.0 cm in length. Normal echogenicity. No calculus, mass, or hydronephrosis. AORTA: No aneurysmal dilatation. IVC: Unremarkable. OTHER FINDINGS: None . IMPRESSION: No cholelithiasis or biliary dilatation. Diffuse increased echogenicity in the liver may reflect hepatic steatosis however parenchymal infectious/ inflammatory etiologies cannot be entirely excluded. Clinical and laboratory correlation is advised. A preliminary report was provided by [employer].
--- NOTE | 2018-01-08 11:19 | CT ---
Date of service: 01/07/2018 PROCEDURE: CT Abdomen and Pelvis with contrast HISTORY: Right-sided abdominal pain. COMPARISON: 09/19/2015 TECHNIQUE: Contrast dose: 95 cc Omnipaque 300. Radiation dose: Total exam DLP = 614.32 mGy-cm. This CT exam was performed using one or more of the following dose reduction techniques: Automated exposure control, adjustment of the mA and/or kV according to patient size, and/or use of iterative reconstruction technique. FINDINGS: LOWER THORAX: Unremarkable. LIVER: Unremarkable. No gross lesion or ductal dilatation. GALLBLADDER AND BILE DUCTS: Unremarkable. PANCREAS: Unremarkable. No gross lesion or ductal dilatation. SPLEEN: Unremarkable. ADRENALS: Unremarkable. No mass. KIDNEYS AND URETERS: Unremarkable. No hydronephrosis. No solid mass. VASCULATURE: Unremarkable. No aortic aneurysm. BOWEL: Unremarkable. No obstruction. No gross mural thickening. APPENDIX: Normal appendix. PERITONEUM: Unremarkable. No free fluid. No free air. LYMPH NODES: Unremarkable. No enlarged lymph nodes. BLADDER: Unremarkable. REPRODUCTIVE: Unremarkable. BONES: No acute fracture. OTHER FINDINGS: None. IMPRESSION: No acute findings related to/accounting for the clinical presentation. No significant interval change compared to the prior examination(s). Concordant results (preliminary interpretation) provided by [facility]. Procedure Completed: 22:42 Preliminary ([facility]) Report: Dictated and Authenticated: 22:54. Final Interpretation: 11:16. January 08, 2018.
== END 2018-01-07 23:25 | disposition home or self-care (01) ==
LOC: H.ER 18:29
DX: N39.0 Urinary tract infection, site not specified (principal)
CPT/HCPCS: 74177; 76705; 80048; 80076; 81003; 83690; 85027; 87086; 87181; 96374; 99283; J1885; Q9967

== ENCOUNTER 2018-02-11 14:17 | Emergency (ER) | payer MEDICARE, OTHER ==
--- NOTE | 2018-02-11 15:30 | ED PDOC ---
Syncope/Near Syncope/Dizziness Time Seen by Provider: 02/11/18 14:46 Chief Complaint (Nursing): Dizziness/Lightheaded Chief Complaint (Provider): Dizziness/Lightheaded History Per: Patient History/Exam Limitations: no limitations Onset/Duration Of Symptoms: Hrs Current Symptoms Are (Timing): Still Present Additional Complaint(s): 62 y/o female with a PMHx of lupus, COPD, CVA and GERD presents to the ED complaining of headache after tripping and falling earlier today. Patient reports of hitting the left side of her head on the ground. Patient reports headache is associated with nausea, neck pain, dizziness/lightheadedness and feeling like she wants to go to sleep. Patient additionally sustained a small cut to her right great toe and also reporting pain to her right elbow. Denies loss of consciousness, new focal weakness, blurry vision and numbness. PMD: Chad Bentley Past Medical History Reviewed: Historical Data, Nursing Documentation, Vital Signs Vital Signs: Last Vital Signs Temp 98.0 F 02/11/18 14:39 Pulse 72 02/11/18 14:39 Resp 16 02/11/18 14:39 BP 137/69 02/11/18 14:39 Pulse Ox 98 02/11/18 14:39 - Medical History PMH: Anemia, Anxiety, Arthritis (osteoarthritis), Asthma, Back Problems ( chronic pain), COPD, CVA, Depression, GERD, Hypercholesterolemia (per old record but pt dnies), Hypothyroidism, Osteoporosis, Chronic Kidney Disease, TIA , Chronic Pain (back) Denies: HIV, HTN - Surgical History Surgical History: (x2) Denies: Pacemaker - Family History Family History: States: Diabetes - Social History Current smoker - smoking cessation education provided: No Alcohol: None - Immunization History Hx Tetanus Toxoid Vaccination: No Hx Influenza Vaccination: Yes Hx Pneumococcal Vaccination: No - Home Medications Home Medications: Ambulatory Orders Medication Instructions Recorded Albuterol Sulfate [Proair Hfa] 2 puff IH BID PRN 06/05/16 Cholecalciferol (Vitamin D3) 5,000 unit PO DAILY 06/05/16 [Vitamin D3] Fluticasone/Salmeterol 250/50 1 puff IH Q12H 06/05/16 [Advair Diskus 250/50] Hydroxychloroquine Sulfate 200 mg PO BID 06/05/16 [Plaquenil] Lorazepam [Ativan] 0.5 mg PO DAILY PRN 06/05/16 Meloxicam [Mobic] 15 mg PO DAILY 06/05/16 Omeprazole 40 mg PO DAILY 06/05/16 Cholecalciferol [Vitamin D 1000 IU] 5,000 iu PO DAILY tab 06/08/16 Fluticasone/Salmeterol 250/50 1 puff IH Q12H puff 06/08/16 [Advair Diskus 250/50] Clindamycin [Cleocin] 300 mg PO BID #14 cap 11/27/16 Ibuprofen [Motrin] 600 mg PO Q6 #20 tab 11/27/16 oxyCODONE/Acetaminophen [Percocet 1 ea PO Q6 PRN #5 tab 11/27/16 5/325 mg Tab] Ibuprofen [Motrin Tab] 800 mg PO Q8 PRN #20 tab 01/13/17 Cetirizine HCl [Zyrtec] 10 mg PO DAILY #10 capsule 07/12/17 Prednisone 50 mg PO DAILY #5 tab 07/12/17 Naproxen 500 mg PO BID #20 tab 12/13/17 Nitrofurantoin Macrocrystals 100 mg PO BID 5 Days cap 01/07/18 [Macrobid] Sulfamethoxazole/Trimethoprim 1 tab PO BID #14 tab 01/10/18 [Bactrim DS 800 mg-160 mg] - Allergies Allergies/Adverse Reactions: Allergies Allergy/AdvReac Type Severity Reaction Status Date / Time No Known Allergies Allergy Verified 01/07/18 18:35 Review of Systems ROS Statement: Except As Marked, All Systems Reviewed And Found Negative Musculoskeletal: Positive for: Arm Pain (elbow) Skin: Positive for: Other (Cut to her right great toe) Neurological: Positive for: Headache Physical Exam - Reviewed Nursing Documentation Reviewed: Yes Vital Signs Reviewed: Yes - Physical Exam Appears: Positive for: No Acute Distress (tired ) Head Exam: Positive for: ATRAUMATIC, NORMOCEPHALIC. Negative for: NORMAL INSPECTION (Tenderness to the right occiput area. No hematoma, no laceration.) Skin: Positive for: Warm, Dry Eye Exam: Positive for: EOMI, PERRL ENT: Positive for: Normal ENT Inspection Neck: Negative for: Normal (Tenderness to palpation on the left c-spine. (+) midline tenderness.) Cardiovascular/Chest: Positive for: Regular Rate, Rhythm Respiratory: Positive for: Normal Breath Sounds. Negative for: Respiratory Distress Gastrointestinal/Abdominal: Positive for: Soft. Negative for: Tenderness Back: Positive for: Normal Inspection. Negative for: Decreased ROM Extremity: Positive for: Tenderness (Mild tenderness to palpation of the right great toe. No deformity, no swelling, no active bleeding. ), Other (0.5 cm superficial laceration at the right plantar great toe. hemostatic. ) Lymphatic: Negative for: Adenopathy Neurologic/Psych: Positive for: Alert, Oriented (x3). Negative for: Motor/ Sensory Deficits - ECG O2 Sat by Pulse Oximetry: 98 (RA) Pulse Ox Interpretation: Normal Medical Decision Making Medical Decision Making: Time: 151 Impression: Head Injury, minor elbow injury and toe injury Plan: -- CT Cervical Spine w/o Contrast -- CT Head w/o Contrast -- Tylenol 975 mg PO -- Foot Right Great Toe XR Time: 170 XR RESULTS FINDINGS: BONES: Bone alignment and mineralization are normal. There is no acute displaced fracture or bone destruction. JOINTS: Normal. SOFT TISSUES: Normal. OTHER FINDINGS: None. IMPRESSION: No acute fracture or dislocation. Time: [address] RESULTS FINDINGS: HEMORRHAGE: No intracranial hemorrhage. BRAIN: There are mild chronic microangiopathic changes. There is no mass, mass effect or abnormal extra-axial fluid collection. There is no territorial infarction. The midline sagittal structures are normal. VENTRICLES: There is mild age-related global parenchymal volume loss and proportionate enlargement of the ventricles and cortical sulci. CALVARIUM: There is no calvarial fracture or extracranial soft tissue swelling. PARANASAL SINUSES: Predominantly clear. MASTOID AIR CELLS: Predominantly clear. OTHER FINDINGS: None. IMPRESSION: No acute intracranial abnormality. Mild chronic microangiopathic changes and mild age-related global parenchymal volume loss. Time: [address] RESULTS FINDINGS: VERTEBRAE: There is normal alignment of the cervical vertebral bodies. There is normal cervical lordosis. Vertebral height is normal. Bone mineralization is normal. There is no acute fracture or traumatic anterior listhesis. The craniocervical junction is normal. The atlantoaxial joint normal. DISCS/SPINAL CANAL/NEURAL FORAMINA: Mild multilevel degenerative disc disease without central canal or neural foraminal stenosis. Discs heights are grossly preserved. PARASPINAL SOFT TISSUES: Normal. OTHER FINDINGS: No prevertebral soft tissue thickening. IMPRESSION: No acute fracture or traumatic anterior listhesis. Straightening of the cervical spine may be positional or related to muscle spasm. DW pt findings and plan of care. Rest. Fall precautions. F/u PMD in 24-48 hours Scribe Attestation: Documented by Nick Lucio, acting as a scribe for Radha Gonzalez MD. Provider Scribe Attestation: All medical record entries made by the Scribe were at my direction and personally dictated by me. I have reviewed the chart and agree that the record accurately reflects my personal performance of the history, physical exam, medical decision making, and the department course for this patient. I have also personally directed, reviewed, and agree with the discharge instructions and disposition. Disposition - Clinical Impression Clinical Impression: Toe laceration, Head injury, Elbow injury - Disposition Referrals: Chad Bentley MD [Family Provider] - ([facility] DR BENTLEY EN 24-48 [facility]) Disposition: Routine/Home Disposition Time: 18:00 Condition: GOOD Instructions: Minor Head Injury (DC), Toe Injury (DC) Forms: [facility] (Liberian) Print Language: ARMENIAN
--- NOTE | 2018-02-11 17:01 | RAD ---
PROCEDURE: Radiographs of the right great toe. TECHNIQUE:: AP radiograph of the right foot, with oblique and lateral view of the right great toe. COMPARISON: 01/13/2017. FINDINGS: BONES: Bone alignment and mineralization are normal. There is no acute displaced fracture or bone destruction. JOINTS: Normal. SOFT TISSUES: Normal. OTHER FINDINGS: None. IMPRESSION: No acute fracture or dislocation.
--- NOTE | 2018-02-11 17:28 | CT ---
Date of service: 02/11/2018 PROCEDURE: CT HEAD WITHOUT CONTRAST. HISTORY: HEADACHE TRAUMA COMPARISON: 01/28/2018. TECHNIQUE: Axial computed tomography images were obtained through the head/brain without intravenous contrast. Radiation dose: Total exam DLP = mGy-cm. This CT exam was performed using one or more of the following dose reduction techniques: Automated exposure control, adjustment of the mA and/or kV according to patient size, and/or use of iterative reconstruction technique. FINDINGS: HEMORRHAGE: No intracranial hemorrhage. BRAIN: There are mild chronic microangiopathic changes. There is no mass, mass effect or abnormal extra-axial fluid collection. There is no territorial infarction. The midline sagittal structures are normal. VENTRICLES: There is mild age-related global parenchymal volume loss and proportionate enlargement of the ventricles and cortical sulci. CALVARIUM: There is no calvarial fracture or extracranial soft tissue swelling. PARANASAL SINUSES: Predominantly clear. MASTOID AIR CELLS: Predominantly clear. OTHER FINDINGS: None. IMPRESSION: No acute intracranial abnormality. Mild chronic microangiopathic changes and mild age-related global parenchymal volume loss.
--- NOTE | 2018-02-11 17:33 | CT ---
Date of service: 02/11/2018 PROCEDURE: CT Cervical Spine without contrast HISTORY: Neck pain, trauma COMPARISON: None available. TECHNIQUE: Axial computed tomography images were obtained of the cervical spine without the use of intravenous contrast. Coronal and sagittal reformatted images were created and reviewed. Radiation dose: Total exam DLP = 309.90 mGy-cm. This CT exam was performed using one or more of the following dose reduction techniques: Automated exposure control, adjustment of the mA and/or kV according to patient size, and/or use of iterative reconstruction technique. FINDINGS: VERTEBRAE: There is normal alignment of the cervical vertebral bodies. There is normal cervical lordosis. Vertebral height is normal. Bone mineralization is normal. There is no acute fracture or traumatic anterior listhesis. The craniocervical junction is normal. The atlantoaxial joint normal. DISCS/SPINAL CANAL/NEURAL FORAMINA: Mild multilevel degenerative disc disease without central canal or neural foraminal stenosis. Discs heights are grossly preserved. PARASPINAL SOFT TISSUES: Normal. OTHER FINDINGS: No prevertebral soft tissue thickening. IMPRESSION: No acute fracture or traumatic anterior listhesis. Straightening of the cervical spine may be positional or related to muscle spasm.
[2018-02-11 18:14] VITALS: BP 140/78; PULSE 69; RESP 19; TEMP 98
[2018-02-13 15:17] VITALS: O2SAT 98
== END 2018-02-11 18:16 | disposition home or self-care (01) ==
LOC: H.ER 14:17
DX: S09.90XA Unspecified injury of head, initial encounter (principal); S91.211A Laceration without foreign body of right great toe with damage to nail, initial encounter; S59.901A Unspecified injury of right elbow, initial encounter; E03.9 Hypothyroidism, unspecified; E78.00 Pure hypercholesterolemia, unspecified; Z86.73 Personal history of transient ischemic attack (TIA), and cerebral infarction without residual deficits